=== PATIENT | male | born 1980 | race African-American/Black ===

== ENCOUNTER 2017-03-17 18:50 | Emergency (ER) | payer MEDICARE, OTHER ==
[2017-03-17 19:06] VITALS: BP 143/93
[2017-03-17] MEDS ORDERED: AMOX500C PO (19:16)
--- NOTE | 2017-03-17 19:17 | PHYS DOC ---
Past Medical History Past Medical History: Other Additional Past Medical Histor: chronic back pain l3,l4 Past Surgical History: No Surgical History Alcohol Use: None Drug Use: None, Marijuana Adult General Chief Complaint Chief Complaint: DENTAL PROBLEM HPI HPI Patient is a 36 year old male presents to the emergency department stating that he is having right upper dental pain and discomfort. He has had this for the last 1-2 days. Family member at bedside states that he was in extreme pain last night in which she took a tramadol in half of her Percocet because that is also she had. She states the Percocet really helped him to be able to sleep. Patient denies any fever, chills or any foul taste in the mouth. He denies having a dentist in which she can follow-up with. Review of Systems Review of Systems Constitutional: Denies fever or chills [] Eyes: Denies change in visual acuity, redness, or eye pain [] HENT: Denies nasal congestion or sore throat. Complaint of dental pain Respiratory: Denies cough or shortness of breath [] Cardiovascular: No additional information not addressed in HPI [] GI: Denies abdominal pain, nausea, vomiting, bloody stools or diarrhea [] : Denies dysuria or hematuria [] Musculoskeletal: Denies back pain or joint pain [] Integument: Denies rash or skin lesions [] Neurologic: Denies headache, focal weakness or sensory changes [] Endocrine: Denies polyuria or polydipsia [] Allergies Allergies Allergies Coded Allergies Type Severity Reaction Last Updated Verified No Known Drug Allergies 02/18/16 No Physical Exam Physical Exam Constitutional: Well developed, well nourished, no acute distress, non-toxic appearance. [] HENT: Normocephalic, atraumatic, bilateral external ears normal, oropharynx moist, no oral exudates, nose normal. Bilateral tympanic membranes appear to be normal. Patient was noted to have swelling and discomfort to the upper right molar the #1 area. Eyes: PERRLA, EOMI, conjunctiva normal, no discharge. [] Neck: Normal range of motion, no tenderness, supple, no stridor. [] Cardiovascular:Heart rate regular rhythm, no murmur [] Lungs & Thorax: Bilateral breath sounds clear to auscultation [] Skin: Warm, dry, no erythema, no rash. [] Back: No tenderness Extremities: No tenderness, no cyanosis, no clubbing, ROM intact, no edema. [] Neurologic: Alert and oriented X 3, normal motor function, normal sensory function, no focal deficits noted. [] Psychologic: Affect normal, judgement normal, mood normal. [] Current Patient Data Vital Signs Vital Signs Date Time Temp Pulse Resp B/P (MAP) Pulse Ox O2 Delivery O2 Flow Rate FiO2 03/17/17 19:06 98.3 72 18 99 Room Air 98.3 EKG EKG [] Radiology/Procedures Radiology/Procedures [] Course & Med Decision Making Course & Med Decision Making Pertinent Labs and Imaging studies reviewed. (See chart for details) Patient was instructed to use Tylenol or ibuprofen for pain and discomfort warm salt water mouth rinses. He'll be provided with a prescription for amoxicillin 1 tablet 4 times a day for the next 10 days. He was provided with a dentist list in which she can follow-up with the dentist within the next week. Signs and symptoms to return back to emergency department as been provided. Patient agrees with discharge instructions, treatment regimens and follow-up recommendations. [] Dragon Disclaimer Dragon Disclaimer This electronic medical record was generated, in whole or in part, using a voice recognition dictation system. Departure Departure Impression: Primary Impression: Dental abscess Disposition: 01 HOME, SELF-CARE Condition: STABLE Referrals: GULSHAN ALY MD (PCP) Patient Instructions: Dental Abscess Additional Instructions: Activity as tolerated. Warm salt water mouth rinses 4 times a day. Antibiotic's as prescribed. Follow-up with the dentist within the next week. Return back to emergency prior signs symptoms of become worse. Scripts Amoxicillin (AMOXICILLIN) 500 Mg Capsule 1 CAP PO QID, #40 CAP Prov: EDUARDO COSTA APRN 03/17/17 EDUARDO COSTA APRN Mar 17, 2017 19:17
== END 2017-03-17 19:24 | disposition home or self-care (01) ==
LOC: ER 18:50
DX: K04.7 Periapical abscess without sinus (principal); G89.29 Other chronic pain
CPT/HCPCS: 99283

== ENCOUNTER → 2017-12-20 | Outpatient (CLI) | payer MEDICARE, OTHER | END | disposition home or self-care (01) | LOC: KCIC MRI 11:09 | DX: M51.16 Intervertebral disc disorders with radiculopathy, lumbar region (principal) | CPT/HCPCS: 72148 ==